=== PATIENT | female | born 1940 | race Caucasian/White ===

== ENCOUNTER 2016-08-05 07:17 | Day surgery (SDC) | payer OTHER, MEDICARE ==
--- NOTE | 2016-07-15 06:21 | History and Physical ---
History & Physical CC: Right fem pop bypass stenosis HPI: Mrs. Guevara underwent a right leg in situ bypass. She now has developed high velocities in a segment of her bypass.. She denies headaches, fevers, chills, dizziness, chest pain, shortness of breath, abdominal pain, nausea, vomiting, dysuria, hematuria or other complaints. ALLERGIES: INCLUDE CODEINE, DEMEROL AND PENICILLIN. HOME MEDICATIONS: Reconciled on the chart and include the following; aspirin, atenolol, Bentyl, Crestor, [employer], levothyroxine, lisinopril, lorazepam, magnesium oxide, multivitamins, omeprazole, sertraline, Zetia and Zofran. PAST MEDICAL HISTORY: Positive for arthritis, coronary artery disease, carpal tunnel syndrome, depression, gastroesophageal reflux disease, hypertension, hyperlipidemia, left bundle-branch block and thyroid disorder. PAST SURGICAL HISTORY: Positive for hip replacement in 2013, heart catheterization with stent insertion in 2009, coronary artery bypass grafting in 1993, arthroscopic knee operation, another cardiac catheterization, extraction of wisdom teeth and hysterectomy. FAMILY HISTORY: Positive for cancer, hypertension and stroke in her mother. SOCIAL HISTORY: Positive for a past history of tobacco use; the patient states that she quit smoking back in 1978. She denies alcohol or drug use. REVIEW OF SYSTEMS: Negative for fatigue, fever, sweats, weight loss. She does not have exercise intolerance. She denies any abnormal moles or rashes, vision changes or photophobia, ear pain, sinus problems or sore throat, cough, shortness of breath, hemoptysis or wheezing, chest pain, palpitations, edema or syncope, abdominal pain, nausea, vomiting, diarrhea or constipation, dysuria, hematuria, muscle weakness, headaches, dizziness, numbness or seizures. PHYSICAL EXAMINATION: Her vital signs today were as follows; a blood pressure of 156/86 in the left arm and 156/78 in the right arm, pulse of 61 and oxygenation of 94% on room air. Constitutional; in general, the patient is a healthy-appearing for age, well-nourished, well-developed elderly female in no acute distress. She ambulates slowly, but without assistance and is active, alert and oriented x4 with normal recent and remote memory, although somewhat vague. Her head is normocephalic and atraumatic. Her eyes are EOMI. Her ENMT exam demonstrates no hearing loss, rhinorrhea or pharyngeal erythema. Her neck is supple, nontender with midline trachea without masses or crepitus. Her lung exam demonstrates no dyspnea. They are clear to auscultation bilaterally. Her cardiovascular exam demonstrates a nondisplaced apical impulse with a regular rate and rhythm without murmurs, lifts, heaves, thrills or gallops. Her peripheral pulses are full and equal in all extremities unless otherwise noted; specifically, they are normal in her carotid, brachial, radial and femoral pulses. Her bilateral posterior tibial pulses are nonpalpable. Her left DP is +2; her right DP palpable. She has brisk capillary refill. No sign of distal ischemia at this time. There are no wounds or ulcerations noted. The patient does not demonstrate a significant bruit in her carotid, abdominal or femoral area. Her abdomen is soft and nontender with normoactive bowel sounds in all 4 quadrants without guarding or rebound. There is no flank or CVA tenderness, and I am unable to appreciate a pulsatile mass. Her musculoskeletal exam demonstrates normal tone and strength for age. Her bilateral upper extremities demonstrate no cyanosis, edema, clubbing, varicosities or ulcers. Her right lower extremity does demonstrate trace edema throughout the leg, although there is no cyanosis, ulcerations, varicosities or gangrene noted bilaterally. Neurologically, the patient has grossly intact cranial nerves and grossly intact sensation. 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 PLAN: Patient is admitted for arteriography and possible intervention of her bypass. I have discussed the risks options and benefits of the procedure with the patient. The patient understands the risks options and benefits and agrees to the procedure.
[~2016-08-05] VITALS: Ht 168.9 cm; Wt 74.0 kg
[2016-08-05] VITALS (8 sets, daily range): BP systolic 160–189; BP diastolic 66–87; PULSE 59–72; TEMP 36.5–37; O2SAT 92–100; Ht 168.9 cm; Wt 74.0 kg
[~2016-08-05 07:17] MED LIST: ASPI81TA28 PO; CLINDAMYCIN 600 MG/54 ML D5W IV SCH; LEVO25TA5 PO; LORA-741 PO; LSN5 PO; MAGN400T6 PO; MULT-506 PO; PRLSR20 PO; SERT-234 PO; SIMV40TA2 PO; SODIUM CHLORIDE 0.9% 1000ML 1,000 ML IV SCH; SODIUM CHLORIDE 0.9% 1000ML IV SCH; TNR25 PO; ULT50X PO
--- NOTE | 2016-08-05 07:40 | History & Physical Bridge Note ---
H&P Re-Evaluation Bridge Note: I have examined the patient, reviewed the History & Physical and in the interval since the performance of the History & Physical I have noted the following changes of clinical significance: No changes noted
--- NOTE | 2016-08-05 07:41 | Procedure Note ---
Pre-Mod Sedation Assessment General Date of Moderate Sedation: Aug 05, 2016. Pre-Sedation Airway Assessment Smoking Status: Former Smoker Mallampati Classification: Class I ASA Classification: Class II Notes The planned sedation has been discussed with the patient and consent obtained. I have identified the patient, determined the appropriateness of sedation and have assessed the patient immediately prior to the procedure. All medicine(s) and interventions are by my order.
[2016-08-05] MEDS ORDERED: calcium PO (08:40)
[2016-08-05 08:46] LABS: CREATININE 0.79 mg/dl (0.60-1.20)
[2016-08-05] MEDS ORDERED: FENTANYL CITRATE INJ 50 MCG/1 ML 2 ML VIAL ONE (09:07)
[2016-08-05] MEDS ORDERED: MIDAZOLAM HCL 1 MG/ML 2ML VIAL ONE (09:08)
[2016-08-05] MEDS ORDERED: HEPARIN SOD (PORCINE) 1000 UNIT/ML 10 ML VIAL ONE (09:08)
[2016-08-05] MEDS ORDERED: FENTANYL CITRATE INJ 50 MCG/1 ML 2 ML VIAL IV ONE (09:51)
[2016-08-05] MEDS ORDERED: LIDOCAINE HCL 1% 20 ML VIAL INJ ONE (09:51)
[2016-08-05] MEDS ORDERED: MIDAZOLAM HCL 1 MG/ML 2ML VIAL IV ONE (09:51)
[2016-08-05] MEDS ORDERED: HEPARIN SOD (PORCINE) 1000 UNIT/ML 10 ML VIAL IV ONE (09:59)
[2016-08-05] MEDS ORDERED: IODIXANOL (VISIPAQUE) 270 MG/ML 150ML FLUSH ONE (10:13)
[2016-08-05] MEDS ORDERED: CLOPIDOGREL BISULFATE 300 MG TAB PO SCH (10:15)
--- NOTE | 2016-08-05 10:16 | Procedure Note ---
Post-Moderate Sedation Plan General Date of Moderate Sedation Aug 05, 2016. Vital Signs: Vital Signs Past 12 Hours Date Time Temp Pulse Resp B/P Pulse Ox O2 Delivery O2 Flow Rate FiO2 08/05/16 08:23 36.8 72 20 189/81 96 Room Air Review - Discharge Plan Post Moderate Sedation Plan: On clinical assessment, the patient appears to have tolerated the conscious sedation without complications. Patient is recovering as anticipated. Patient will continue to be monitored by nursing and may be discharged when conscious sedation discharge criteria are met.
[2016-08-05] MEDS ORDERED: CLOP1TAB54 PO (10:18)
--- NOTE | 2016-08-05 10:20 | Discharge Instructions ---
Discharge Instructions Visit Reason for Visit: Stenosis Right Leg Bypass Discharge Discharge Diagnosis / Problem: Severe stenosis right femoral tibial bypass Discharge Goals Goal(s): Therapeutic intervention Activity Recommendations Activity Limitations: per Instructions/Follow-up section Anesthesia . Post Anesthesia Instructions: If you have had General Anesthesia or IV Sedation: * Do not drive today. * Resume driving when surgeon permits. * Do not make important decisions or sign legal documents today. * Call surgeon for: 1. Temperature elevations greater than 101 degrees F. 2. Uncontrollable pain. 3. Excessive bleeding. 4. Persistent nausea and vomiting. 5. Medication intolerance (nausea, vomiting or rash). * For nausea and vomiting use only clear liquids such as: tea, soda, bouillon until nausea subsides, then gradually increase diet as tolerated. * If you have any concerns or questions, call your surgeon's office. If physician is unavailable and it is an emergency, call 911 or go to the nearest emergency room. . Instructions / Follow-Up Instructions / Follow-Up Call [phone] to schedule a follow up appointment if one not already scheduled. SPECIAL CARE INSTRUCTIONS: Medications: * Continue to take your medications as directed. If you have been given a prescription for Plavix, please fill it immediately and take as directed. Incision Care: * Your puncture site may have some bruising and minor swelling for about one week. * You will have a small dressing covering your puncture site. You may remove the dressing after 24 hours and shower. You may let the warm soapy water run over it, but be sure to dry the puncture site well and keep it dry. * DO NOT IMMERSE THE INCISION IN A TUB/POOL/etc. UNTIL HEALED. * Puncture sites should be kept covered with a band-aid until it begins to heal. Restrictions: * Depending on whether you leg or arm was punctured to access the arteries, you will be required to lay flat, hold your arm still, or both, for about 4 hours after the procedure to prevent bleeding. * Limit your activity for the first 48 hours. You may walk and go up and down steps. Avoid excessive bending or movement at the puncture site. Possible Complications: * Excessive Swelling - after blood flow is improved you may notice increased swelling in the lower legs. This is a normal response. This usually depends on the amount of blockages in the leg, how long they have been there prior to your procedure and how much blood flow was restored. Elevating your legs will help to improve this. Please notify our office ([phone] ) if the swelling does not go away after lying in bed overnight. * Infection/Drainage/Bleeding - Drainage or bleeding from the puncture site should be minimal. If you have excessive bleeding or drainage, call our office ([phone]) right away. * Pain - You may experience some mild pain or soreness at your puncture site. If your pain does not improve, please contact our office ([phone]). Call your doctor and seek emergent treatment if you develop: * Temperature above 101 degrees * Any fever or chills * Any redness or purulent drainage from the puncture site * Any new dusky/blue colored toes or feet with coolness or sharp or aching pain. SKIN IRRITATION: * You may experience some redness and/or swelling in the area where radiation was administered. If any skin irritation occurs, please contact your family physician. FOLLOW UP VISIT: Keep any scheduled doctor appointments. Diet Recommendations Recommended Home Diet: resume previous diet Procedures Procedures Performed: Right Lower Extremity Angiogram, Percutaneous Transluminal Angioplasty Of Right Femoral Post tibial Bypass, Mechanical Closure Of Left Femoral Artery, Moderate Concious Sedation 0951 to 1013 Pending Studies Studies pending at discharge: no Medical Emergencies . Who to Call and When: Medical Emergencies: If at any time you feel your situation is an emergency, please call 911 immediately. . Non-Emergent Contact Non-Emergency issues call your: Surgeon . . "Provider Documentation" section prepared by Rowdy Vaz.
--- NOTE | 2016-08-05 10:22 | [facility] Post Operative Brief Note ---
Immediate Operative Summary Operative Date Aug 05, 2016. Pre-Operative Diagnosis stenosis of right femoral tibial bypass Post-Operative Diagnosis same Procedure(s) Performed Right Lower Extremity Angiogram, Percutaneous Transluminal Angioplasty Of Right Femoral Post tibial Bypass, Mechanical Closure Of Left Femoral Artery, Moderate Concious Sedation - [address] Vaz Pipe Buffer Surgeon(s) none Estimated Blood Loss 5 ml Findings no residual stenosis Specimens none Anesthesia Local with moderate conscious sedation Complication(s) None Disposition
--- NOTE | 2016-08-09 08:08 | DIAGNOSTIC IMAGING REPORT ---
DATE OF PROCEDURE: 08/05/2016 PREOPERATIVE DIAGNOSIS: Stenosis of distal end of femoral-tibial bypass. POSTOPERATIVE DIAGNOSIS: Same. PROCEDURE: 1. Right lower extremity arteriography second order. 2. Transluminal balloon angioplasty of femoral-tibial bypass distally. 3. Mechanical closure of left common femoral artery. 4. Moderate conscious sedation 28 minutes. SURGEON: Dr. Vaz. ANESTHETIC: Local with moderate conscious sedation. PROCEDURE INDICATIONS: The patient is a 75-year-old female who was found to have severe stenosis of distal end of her [id number] bypass on ultrasound. An arteriography and possible intervention was recommended. She understood the risks, options and benefits and agreed to have this procedure. The patient was taken to the angiogram suite and placed in supine position. After the groins were prepped and draped in a sterile manner, local anesthetic was administered. Percutaneous puncture was made in the left common femoral artery. A 5-[place] sheath was inserted. Using a rim catheter and a 0.035 wire, the right side was cannulated from the left. The catheter was passed down to the common femoral artery. Arteriography was then performed which showed the bypass graft to be widely patent into the distal end where there was a severe greater than 90% narrowing for approximately 2 cm in length. The tibial vessel had good runoff distally. The anastomosis appeared widely patent. A wire was then exchanged for a stiffened Glidewire. Once this was in place, the rim catheter was removed, the 5 [place] sheath was exchanged for a 6-E[place]an destination. The 0.035 wire was then passed down through the stenosis. Once this was done, a 4 x 40 balloon was inserted and the distal stenotic area was ballooned. This responded nicely without any residual stenosis. At that point, the wire balloon was removed. Completion angio showed the stenotic area to be widely patent with excellent runoff. The sheath was then pulled over to the left side. Hand injection showed the puncture to be in the common femoral artery. Wire was reinserted and the puncture site was closed using the Star closure device. Adequate hemostasis was noted. The StarClose worked nicely. A dressing was then applied and the patient left the angio suite in good condition and tolerated the procedure well.
[2017-02-16] MEDS ORDERED: OMEG10007 PO (14:08)
[2017-02-16] MEDS ORDERED: ATEN25TA PO (14:08)
[2017-02-16] MEDS ORDERED: CALC600T9 PO (14:08)
== END 2016-08-05 14:00 | disposition home or self-care (01) ==
LOC: C.ACU 07:17
PROVIDERS: ATTEND Surgery Vascular Surgery
DX: T82.856A Stenosis of peripheral vascular stent, initial encounter (principal); Y83.2 Surgical operation with anastomosis, bypass or graft as the cause of abnormal reaction of the patient, or of later complication, without mention of misadventure at the time of the procedure; Z88.5 Allergy status to narcotic agent; Z88.0 Allergy status to penicillin; I25.10 Atherosclerotic heart disease of native coronary artery without angina pectoris; F32.9 Major depressive disorder, single episode, unspecified; K21.9 Gastro-esophageal reflux disease without esophagitis; I10 Essential (primary) hypertension; E78.5 Hyperlipidemia, unspecified; Z96.649 Presence of unspecified artificial hip joint; Z98.890 Other specified postprocedural states; Z98.818 Other dental procedure status; Z90.710 Acquired absence of both cervix and uterus; Z95.1 Presence of aortocoronary bypass graft; Z87.891 Personal history of nicotine dependence

== ENCOUNTER → 2017-03-03 | Day surgery (SDC) | payer OTHER, MEDICARE ==
[2017-02-16 14:12] VITALS: BMI 25.0
[~2017-03-03] VITALS: Ht 167.6 cm; Wt 71.8 kg
[~2017-03-03] MED LIST changes: -ASPI81TA28 PO; +ATEN25TA PO; +CALC600T9 PO; -CLINDAMYCIN 600 MG/54 ML D5W IV SCH; +LIDOCAINE HCL 2% 2 ML VIAL (20MG/ML) ONE; -LSN5 PO; +OMEG10007 PO; +PROPOFOL IV EMULSION 10 MG/ML 20 ML VIAL IV ONE; -SODIUM CHLORIDE 0.9% 1000ML 1,000 ML IV SCH; -SODIUM CHLORIDE 0.9% 1000ML IV SCH; -TNR25 PO; -ULT50X PO
[2017-03-03 12:54] VITALS: Ht 167.6 cm; Wt 71.8 kg
[2017-03-03 12:59] VITALS: TEMP 36.7
--- NOTE | 2017-03-03 13:08 | Endo History and Physical ---
History & Physical Date of Service: Mar 03, 2017. Chief Complaint: Anemia, rectal bleeding Referring Physician: Mandeep Schaefer History of Present Illness For colonoscopy Past Medical History Angioplasty/Stent, Anxiety, Reflux, High Cholesterol, CABG, Heart Disease, Hypertension, Thyroid Disease, Depression Past Surgical History Hx Cardiac Surgery: Yes (HEART CATH, NO STENTS; CABG X2 VESSELS) Hx Internal Defibrillator: No Hx Pacemaker: No Hx Abdominal Surgery: No Hx of Implantable Prosthesis: No Hx Post-Op Nausea and Vomiting: Yes (ONLY HAPPENED 1 TIME) Hx Cancer Surgery: No Hx Thoracic Surgery: No Hx Orthopedic: Yes (LT TKA, RT MARCELINO) Hx Urinary Tract Surgery: No Family History None Social History Smoking Status: Never Smoker Hx Substance Use: No Hx Alcohol Use: No Allergies Coded Allergies: Penicillins (Verified Allergy, Mild, RASH, 03/03/17) Codeine (Verified Adverse Reaction, Mild, N/V, 03/03/17) Meperidine (Verified Adverse Reaction, Mild, N/V, 03/03/17) Oxycodone (Verified Adverse Reaction, Mild, N/V, 03/03/17) Current Medications Reported Home Medications Medications Dose Route/Sig Max Daily Dose Days Date Category Calcium + D (Calcium Carbonate-Vitamin D) 1 Tab Tab 1 Tab PO DAILY 02/16/17 Reported [place]-3 (Fish Oil) 1 Ea Cap 1 Cap PO DAILY 02/16/17 Reported Tenormin (Atenolol) 25 Mg Tab 0.5 Tab PO BID 02/16/17 Reported Zocor (Simvastatin) 40 Mg Tab 40 Mg PO QPM 10/29/15 Reported Ativan (Lorazepam) 0.5 Mg Tab 0.5 Mg PO HS 10/29/15 Reported Levothyroxine Sodium 25 Mcg Tab 1 Tab PO QAM 10/29/15 Reported Multivitamin (Multivitamins) Tab 1 Tab PO HS 10/29/15 Reported Mag-Ox (Magnesium Oxide) 400 Mg Tab 400 Mg PO BID 10/29/15 Reported Zoloft (Sertraline HCl) 100 Mg Tab 100 Mg PO QPM 04/20/10 Reported Prilosec (Omeprazole) 20 Mg Capcr 20 Mg PO BID 04/20/10 Reported Vital Signs Weight (Kilograms): 71.82 Height (Feet): 5 Height (Inches): 6.5 Physical Exam General Appearance: WD/WN Respiratory/Chest: Respiratory effort: no dyspnea Cardiovascular: Apical Impulse: pertinent finding (sternotomy scar) Abdomen: Inspection & Palpation: soft Assessment and Plan anemia , rectal bleeding for colonoscopy
--- NOTE | 2017-03-03 13:38 | Discharge Instructions ---
Endoscopy Patient Instructions Date / Procedure(s) Performed Mar 03, 2017. Colonoscopy Allergy Information Coded Allergies: Penicillins (Verified Allergy, Mild, RASH, 03/03/17) Codeine (Verified Adverse Reaction, Mild, N/V, 03/03/17) Meperidine (Verified Adverse Reaction, Mild, N/V, 03/03/17) Oxycodone (Verified Adverse Reaction, Mild, N/V, 03/03/17) Discharge Date / Findings Mar 03, 2017. hemorrhoids, diverticulosis, polyps Medication Instructions Restart Stopped Medication(s): resume meds Reported Home Medications Medications Dose Route/Sig Max Daily Dose Days Date Category Calcium + D (Calcium Carbonate-Vitamin D) 1 Tab Tab 1 Tab PO DAILY 02/16/17 Reported [place]-3 (Fish Oil) 1 Ea Cap 1 Cap PO DAILY 02/16/17 Reported Tenormin (Atenolol) 25 Mg Tab 0.5 Tab PO BID 02/16/17 Reported Zocor (Simvastatin) 40 Mg Tab 40 Mg PO QPM 10/29/15 Reported Ativan (Lorazepam) 0.5 Mg Tab 0.5 Mg PO HS 10/29/15 Reported Levothyroxine Sodium 25 Mcg Tab 1 Tab PO QAM 10/29/15 Reported Multivitamin (Multivitamins) Tab 1 Tab PO HS 10/29/15 Reported Mag-Ox (Magnesium Oxide) 400 Mg Tab 400 Mg PO BID 10/29/15 Reported Zoloft (Sertraline HCl) 100 Mg Tab 100 Mg PO QPM 04/20/10 Reported Prilosec (Omeprazole) 20 Mg Capcr 20 Mg PO BID 04/20/10 Reported Provider Instructions Activity Restrictions - No exercising or heavy lifting for 24 hours. - Do not drink alcohol the day of the procedure. - Do not drive a car or operate machinery until the day after the procedure. - Do not make any important decisions or sign important papers in 24 hours after the procedure. Following Day: - Return to full activity which may include returning to work/school. Diet Start your diet with liquids and light foods (jello, soup, juice, toast). Then eat your usual diet if not nauseated. Treatment For Common After Affects For mild abdominal pain, bloating, or excessive gas: - Rest - Eat lightly - Lie on right side Follow-Up Information Follow-up with DR LONG as scheduled Anesthesia Information What You Should Know You have had a procedure that required some medicine to reduce anxiety and discomfort. This treatment is called moderate sedation. After receiving the treatment, you may be sleepy, but you will be able to breathe on your own. The effects of the treatment may last for several hours. Follow these instructions along with Activity/Diet recommendations noted above: * Do NOT do anything where dizziness or clumsiness would be dangerous. * Rest quietly at home today, then you can be up and about tomorrow. * Have a responsible person stay with you the rest of today. * You may have had an I.V. today. If so, you may take the dressing off later today. Recommendations Call your doctor if: * Trouble breathing * Continuous vomiting for more than 24 hours * Temperature above 101 degrees * Severe abdominal pain or bloating * Pain not relieved by pain medicine ordered * There is increased drainage or redness from any incision * A large amount of rectal bleeding greater than 2-3 tablespoons. (If you had a polyp/s removed or have hemorrhoids, a small amount of blood - from the rectum is to be expected.) * You have any unanswered questions or concerns. IN THE EVENT OF A SERIOUS EMERGENCY, GO TO THE NEAREST EMERGENCY ROOM Your discharge instructions were prepared by provider Eddy Castellon. Patient Instructions Signature Page Delfina Guevara Patient (or Guardian) Signature/Date: I have read and understand the instructions given to me by my caregivers. Caregiver/RN/Doctor Signature/Date: The above-named patient and/or guardian has received patient instructions on this date. + Original Patient Signature Page (only) stays with chart. Please make copy for patient.
--- NOTE | 2017-03-03 13:43 | GI REPORT ---
Procedure Date: 03/03/2017 1:13 PM Procedure: Colonoscopy Indications: Rectal bleeding, Iron deficiency anemia Medicines: Propofol total dose 260 mg IV, Lidocaine 40 mg IV Complications: No immediate complications. Estimated Blood Loss: Estimated blood loss was minimal. Procedure: Pre-Anesthesia Assessment: - Prior to the procedure, a History and Physical was performed, and patient medications, allergies and sensitivities were reviewed. The patient's tolerance of previous anesthesia was reviewed. - The risks and benefits of the procedure and the sedation options and risks were discussed with the patient. All questions were answered and informed consent was obtained. After I obtained informed consent, the scope was passed under direct vision. Throughout the procedure, the patient's blood pressure, pulse, and oxygen saturations were monitored continuously. The On-site loaner was introduced through the anus and advanced to the cecum, identified by appendiceal orifice and ileocecal valve. The colonoscopy was somewhat difficult due to significant looping. Successful completion of the procedure was aided by applying abdominal pressure. The patient tolerated the procedure well. The quality of the bowel preparation was good. Findings: Non-bleeding internal hemorrhoids were found during endoscopy. The hemorrhoids were moderate. Multiple diverticula were found in the sigmoid colon. A 3 mm polyp was found at the hepatic flexure. The polyp was sessile. The polyp was removed with a cold biopsy forceps. Resection and retrieval were complete. Estimated blood loss was minimal. A 3 mm polyp was found in the ascending colon. The polyp was sessile. The polyp was removed with a cold biopsy forceps. Resection and retrieval were complete. Estimated blood loss was minimal. Impression: - Non-bleeding internal hemorrhoids. - Diverticulosis in the sigmoid colon. - One 3 mm polyp at the hepatic flexure, removed with a cold biopsy forceps. Resected and retrieved. - One 3 mm polyp in the ascending colon, removed with a cold biopsy forceps. Resected and retrieved. Recommendation: - Discharge patient to home (ambulatory). - Continue present medications. - Await pathology results. - Return to primary care physician PRN. Eddy Castellon M.D. Eddy Castellon MD 03/03/2017 1:42:28 PM This report has been signed electronically. Note Initiated On: 03/03/2017 1:13 PM I attest to the content of the Intraoperative Record and orders documented therein, exceptions below
[2017-03-03 14:15] VITALS: BP 160/78; PULSE 69; O2SAT 95
--- NOTE | 2017-03-03 14:36 | Anesthesiology Progress Note ---
Anesthesia Post Op Note Date & Time Mar 03, 2017 at 14:35 Vital Signs Pain Intensity: 4 Vital Signs Past 12 Hours Date Time Temp Pulse Resp B/P (MAP) Pulse Ox O2 Delivery O2 Flow Rate FiO2 03/03/17 14:15 69 18 160/78 (105) 95 Room Air 03/03/17 13:50 76 18 181/76 (111) 94 Room Air 03/03/17 13:40 67 16 122/61 (81) 95 Room Air 03/03/17 12:59 36.7 78 18 164/79 (107) 95 Room Air Notes Mental Status: alert / awake / arousable, participated in evaluation Pt Amnestic to Procedure: Yes Nausea / Vomiting: adequately controlled Pain: adequately controlled Airway Patency, RR, SpO2: stable & adequate BP & HR: stable & adequate Hydration State: stable & adequate Anesthetic Complications: no major complications apparent
== END | disposition home or self-care (01) ==
LOC: C.GI 11:32
PROVIDERS: ATTEND Internal Medicine Gastroenterology
DX: D50.9 Iron deficiency anemia, unspecified (principal); K62.5 Hemorrhage of anus and rectum; D12.2 Benign neoplasm of ascending colon; K57.92 Diverticulitis of intestine, part unspecified, without perforation or abscess without bleeding; K64.8 Other hemorrhoids; K63.5 Polyp of colon; Z95.5 Presence of coronary angioplasty implant and graft; F41.9 Anxiety disorder, unspecified; K21.9 Gastro-esophageal reflux disease without esophagitis; E78.00 Pure hypercholesterolemia, unspecified; I10 Essential (primary) hypertension; F32.9 Major depressive disorder, single episode, unspecified; Z96.641 Presence of right artificial hip joint; Z96.652 Presence of left artificial knee joint; I25.10 Atherosclerotic heart disease of native coronary artery without angina pectoris; E78.5 Hyperlipidemia, unspecified; E03.9 Hypothyroidism, unspecified; K44.9 Diaphragmatic hernia without obstruction or gangrene